=== PATIENT | male | born 1965 | race Caucasian/White ===

== ENCOUNTER → 2017-06-13 | Outpatient (CLI) | payer OTHER ==
[~2017-06-13] MED LIST: ASPIR-LOW81 MG; COLCRYS0.6 MG; LOPRESSOR25 MG PO; METOPROLOL; METOPROLOL25 MG PO; METOPROLOL50 MG; TRICOR48 MG PO; ZOCOR10 MG PO
[2017-06-13 09:28] LABS: HEMATOCRIT 43.2 % (42.0-52.0); HEMOGLOBIN 14.4 g/dl (14.0-18.0); MEAN CELL VOLUME 93.7 fl (80.0-94.0); MEAN CORPUSCULAR HGB 31.2 pg (27.0-31.0); MEAN CORPUSCULAR HGB CONC 33.3 g/dl (33.0-37.0); MEAN PLATELET VOLUME 10.2 fl (9.6-12.3); RED BLOOD COUNT 4.61 10*6/uL (4.50-5.90); RED CELL DISTRI WIDTH 12.8 % (0-14.5); WHITE BLOOD COUNT 6.8 10*3/uL (4.8-10.8)
[2017-06-13 09:50] LABS: ALBUMIN 3.8 gm/dl (3.1-4.5); BUN 21 mg/dl (7-24); CHLORIDE 106 mmol/L (98-107); CHOLESTEROL 126 mg/dL (<200); CREATININE 1.22 mg/dL (0.70-1.30); POTASSIUM 4.3 mmol/L (3.5-5.1); SGOT/AST 18 IU/L (3-35); SGPT/ALT 42 U/L (12-78); SODIUM 140 mmol/L (136-145); TOTAL PROTEIN 6.9 gm/dL (6.4-8.2); TRIGLYCERIDES 180 mg/dl (<150); URIC ACID 5.1 mg/dL (3.5-7.2); VLDL CHOLESTEROL 36 mg/dL (6-40)
[2017-06-13 09:51] LABS: ALKALINE PHOSPHATASE 61 U/L (45-117); CPK 94 U/L (39-308); HDL CHOLESTEROL 35 mg/dl (40-60); LDL CHOLESTEROL 55 mg/dL (9-159)
== END | disposition home or self-care (01) ==
LOC: LAB 08:41
PROVIDERS: Family Medicine
DX: E78.00 Pure hypercholesterolemia, unspecified (principal); I25.10 Atherosclerotic heart disease of native coronary artery without angina pectoris; I10 Essential (primary) hypertension

== ENCOUNTER → 2020-03-10 | Outpatient (CLI) | payer BC ==
[~2020-03-10] MED LIST changes: +ALLOPURINOL300 MG PO; +DECADRON6 M1 PO; +GUAIFEN-CODEIN118 ML PO; +LISINOPRIL20 MG PO; +MEDI-FIRST ASP325 MG PO
== END | disposition home or self-care (01) ==
LOC: COVID19 09:49
PROVIDERS: ATTEND Nurse Practitioner Family
DX: U07.1 COVID-19 (principal)

== ENCOUNTER 2020-03-12 16:35 | Inpatient (IN) | payer BC ==
[~2020-03-12] VITALS: Wt 113.4 kg
[~2020-03-12 16:35] MED LIST changes: -ALLOPURINOL300 MG PO; -DECADRON6 M1 PO; -GUAIFEN-CODEIN118 ML PO; -LISINOPRIL20 MG PO; -MEDI-FIRST ASP325 MG PO
[2020-03-12 16:46] VITALS: BP 127/74
[2020-03-12 18:21] LABS: HEMATOCRIT 41.7 % (42.0-52.0); LYMPH # 0.6 10*3/uL (1.3-4.4); LYMPH % 15.5 % (27.0-41.0); MEAN CELL VOLUME 94.6 fl (80.0-94.0); MEAN CORPUSCULAR HGB 31.1 pg (27.0-31.0); MEAN CORPUSCULAR HGB CONC 32.9 g/dl (33.0-37.0); MONO # 0.3 10*3/uL (0.1-1.0); MONO % 8.3 % (3.0-9.0); NEUT % 75.7 % (47.0-73.0); PLATELET COUNT AUTOMATED 152 10*3/uL (130-400); RED BLOOD COUNT 4.41 10*6/uL (4.50-5.90); RED CELL DISTRI WIDTH 13.2 % (0-14.5)
--- NOTE | 2020-03-12 19:06 | NUR ---
REPORT FROM CHAZ ELIZABETH. PATIENT RESTING IN BED. RR EASY AND NON-LABORED. CALL LIGHT WITHIN REACH. APPEARS TO BE IN NO DISTRESS AT THIS TIME. WILL CONTINUE TO MONITOR.
[2020-03-12 20:16] LABS: ALBUMIN 3.2 gm/dl (3.1-4.5); ALKALINE PHOSPHATASE 44 U/L (45-117); BUN 17 mg/dl (7-24); CHLORIDE 106 mmol/L (98-107); CREATININE 1.08 mg/dL (0.70-1.30); POTASSIUM 4.3 mmol/L (3.5-5.1); SGOT/AST 42 IU/L (3-35); SGPT/ALT 41 U/L (12-78); SODIUM 137 mmol/L (136-145); TOTAL PROTEIN 6.7 gm/dL (6.4-8.2)
[2020-03-12 20:23] VITALS: BP 116/65
--- NOTE | 2020-03-12 23:02 | NUR ---
PT. RESTING IN BED WITH EYES CLOSED. RR EASY AND NON-LABORED. CALL LIGHT WITHIN REACH. WILL CONTINUE TO MONITOR.
[2020-03-13] VITALS: BP 123/61
[2020-03-13 06:09] LABS: ALBUMIN 3.1 gm/dl (3.1-4.5); ALKALINE PHOSPHATASE 44 U/L (45-117); BUN 21 mg/dl (7-24); CHLORIDE 107 mmol/L (98-107); CHOLESTEROL 96 mg/dL (<200); CREATININE 1.06 mg/dL (0.70-1.30); LDH 331 U/L (87-241); POTASSIUM 4.6 mmol/L (3.5-5.1); SGOT/AST 47 IU/L (3-35); SGPT/ALT 43 U/L (12-78); SODIUM 139 mmol/L (136-145); TOTAL PROTEIN 6.8 gm/dL (6.4-8.2); TRIGLYCERIDES 140 mg/dl (<150); VLDL CHOLESTEROL 28 mg/dL (6-40)
[2020-03-13 06:10] LABS: CPK 183 U/L (39-308); HDL CHOLESTEROL 37 mg/dl (40-60); LDL CHOLESTEROL 31 mg/dL (9-159)
--- NOTE | 2020-03-13 06:10 | NUR ---
PT SLEEPING IN BED. RESP-EASY AND REGULAR. OXYGEN IN USE. CALL LIGHT IN REACH.
[2020-03-13] MEDS ORDERED: ALLOPURINOL300 MG PO (06:54)
[2020-03-13] MEDS ORDERED: LISINOPRIL20 MG PO (06:55)
--- NOTE | 2020-03-13 06:57 | NUR ---
CALLED DR. SWAIN MADE AWARE I SPOKE WITH AND VERIFIED HOME MEDICATIONS AND THEY NEED ORDERED.
[2020-03-13 07:23] LABS: HEMATOCRIT 42.2 % (42.0-52.0); LYMPH # 0.5 10*3/uL (1.3-4.4); LYMPH % 21.1 % (27.0-41.0); MEAN CELL VOLUME 96.6 fl (80.0-94.0); MEAN CORPUSCULAR HGB 30.9 pg (27.0-31.0); MONO # 0.1 10*3/uL (0.1-1.0); MONO % 4.4 % (3.0-9.0); NEUT # 1.9 10*3/uL (2.3-7.9); NEUT % 74.1 % (47.0-73.0); PLATELET COUNT AUTOMATED 165 10*3/uL (130-400); RED BLOOD COUNT 4.37 10*6/uL (4.50-5.90); WHITE BLOOD COUNT 2.5 10*3/uL (4.8-10.8)
[2020-03-13 07:44] LABS: FERRITIN 1518.7 ng/mL (22.0-322.0)
[2020-03-13 08:00] VITALS: BP 127/75
[2020-03-13 08:56] LABS: ABG BASE EXCESS 0.1 mmol/L (-2.0-2.0); ARTERIAL BLOOD GAS PH 7.427 (7.35-7.45)
--- NOTE | 2020-03-13 09:00 | NUR ---
Clinic Assistant in to talk to patient. Patient states lives at home with . There are no steps in the home. Physician: [facility] Pharmacy: [facility] Home health services: none Patient's level of ADLs: INDEPENDENT Patient has working utilities: all working DME: none Follow-up physician's appointment after d/c: will be made by hospitalist nurse director upon discharge Does patient want to access PORTAL?: no Discharge plan discussed with patient, he lives at home with , is independent in adls and ambulation, works, drives, he will return home when discharged, case management will follow for any home needs. PORSCHE THOMAS
--- NOTE | 2020-03-13 09:00 | NUR ---
PT ENCOURAGED TO PRONE
--- NOTE | 2020-03-13 10:57 | NUR ---
NOTIFIED OF PTS REQUEST FOR COUGH MEDICINE
[2020-03-13 12:00] VITALS: BP 111/55
[2020-03-13 16:00] VITALS: BP 120/70
[2020-03-13 20:00] VITALS: BP 123/62
[2020-03-14] VITALS: BP 105/45
[2020-03-14 06:16] LABS: BASO % 0.1 % (0.0-1.0); HEMATOCRIT 37.5 % (42.0-52.0); LYMPH # 1.2 10*3/uL (1.3-4.4); MEAN CELL VOLUME 95.7 fl (80.0-94.0); MEAN CORPUSCULAR HGB 31.4 pg (27.0-31.0); MEAN CORPUSCULAR HGB CONC 32.8 g/dl (33.0-37.0); MEAN PLATELET VOLUME 10.2 fl (9.6-12.3); MONO # 0.7 10*3/uL (0.1-1.0); MONO % 7.9 % (3.0-9.0); NEUT # 7.2 10*3/uL (2.3-7.9); NEUT % 78.7 % (47.0-73.0); PLATELET COUNT AUTOMATED 185 10*3/uL (130-400); RED BLOOD COUNT 3.92 10*6/uL (4.50-5.90); WHITE BLOOD COUNT 9.2 10*3/uL (4.8-10.8)
[2020-03-14 06:20] LABS: ALBUMIN 2.9 gm/dl (3.1-4.5); ALKALINE PHOSPHATASE 39 U/L (45-117); BUN 25 mg/dl (7-24); CHLORIDE 107 mmol/L (98-107); CPK 139 U/L (39-308); CREATININE 1.09 mg/dL (0.70-1.30); LDH 309 U/L (87-241); POTASSIUM 4.9 mmol/L (3.5-5.1); SGOT/AST 49 IU/L (3-35); SGPT/ALT 52 U/L (12-78); SODIUM 140 mmol/L (136-145); TOTAL PROTEIN 6.3 gm/dL (6.4-8.2)
[2020-03-14 07:55] LABS: ABG BASE EXCESS -0.2 mmol/L (-2.0-2.0); ARTERIAL BLOOD GAS PH 7.444 (7.35-7.45)
[2020-03-14 08:00] VITALS: BP 109/47
--- NOTE | 2020-03-14 08:17 | NUR ---
PT GIVEN PO ROBITUSSIN PER PRN ORDER FOR C/O COUGH. WILL MONITOR EFFECTIVENESS. POX 93% VIA 2LNC. WILL MONITOR. CALL LIGHT WITHIN REACH.
--- NOTE | 2020-03-14 10:07 | NUR ---
PT ASSESSED FOR HOME OXYGEN. PT QUALIFIES PT AT REST 94% RA, HR 77, RR 18, B/P 121/76 PT AMBULATED SPO2 90-93% RA PT AT REST SPO2 88-89% RA, HR 76, RR 18, B/P 120/64, PLACED ON 2LNC SPO2 94% RN NOTIFIED AND CASEMANAGEMENT NOTIFIED, NOTIFIED
--- NOTE | 2020-03-14 11:30 | NUR ---
case management received a script for home oxygen for patient, contacted [facility], spoke to Chaparrita, patient's information along with script for o2 faxed. elan stated they would bring a portable tank to the hospital for patient today. contacted nursing staff and informed them, also contacted patient and informed him
[2020-03-14 12:00] VITALS: BP 125/70
--- NOTE | 2020-03-14 15:00 | NUR ---
Patient resting quietly with no c/o discomfort. Respirations easy and regular. Vital signs stable. No overt distress. JOSE ALFREDO BEVERLY
[2020-03-14 16:00] VITALS: BP 119/77
[2020-03-14 20:00] VITALS: BP 127/62
[2020-03-15] VITALS: BP 113/66
[2020-03-15 06:31] LABS: BASO % 0.1 % (0.0-1.0); HEMATOCRIT 41.5 % (42.0-52.0); LYMPH # 1.7 10*3/uL (1.3-4.4); LYMPH % 18.6 % (27.0-41.0); MEAN CELL VOLUME 97.2 fl (80.0-94.0); MEAN CORPUSCULAR HGB 31.4 pg (27.0-31.0); MEAN CORPUSCULAR HGB CONC 32.3 g/dl (33.0-37.0); MONO # 0.8 10*3/uL (0.1-1.0); MONO % 8.6 % (3.0-9.0); NEUT # 6.4 10*3/uL (2.3-7.9); PLATELET COUNT AUTOMATED 215 10*3/uL (130-400); RED BLOOD COUNT 4.27 10*6/uL (4.50-5.90); RED CELL DISTRI WIDTH 13.2 % (0-14.5); WHITE BLOOD COUNT 8.9 10*3/uL (4.8-10.8)
[2020-03-15 06:46] LABS: ALBUMIN 3.2 gm/dl (3.1-4.5); ALKALINE PHOSPHATASE 43 U/L (45-117); BUN 27 mg/dl (7-24); CHLORIDE 107 mmol/L (98-107); CPK 105 U/L (39-308); CREATININE 1.14 mg/dL (0.70-1.30); LDH 361 U/L (87-241); POTASSIUM 4.2 mmol/L (3.5-5.1); SGOT/AST 69 IU/L (3-35); SGPT/ALT 86 U/L (12-78); SODIUM 140 mmol/L (136-145); TOTAL PROTEIN 6.8 gm/dL (6.4-8.2)
[2020-03-15 08:00] VITALS: BP 121/57
--- NOTE | 2020-03-15 09:32 | NUR ---
TYLENOL AND ROBITUSSIN GIVEN PER PRN ORDER FOR C/O GENERALIZED PAIN/DISCOMFORT AND HARSH COUGH. WILL MONITOR EFFECTIVENESS. POX 93% VIA 2LNC. CALL LIGHT WITHIN REACH.
--- NOTE | 2020-03-15 10:32 | NUR ---
EARLIER MEDS EFFECTIVE PER PT. WILL CONTINUE TO MONITOR.
[2020-03-15 12:00] VITALS: BP 100/47
[2020-03-15] MEDS ORDERED: MEDI-FIRST ASP325 MG PO (12:04)
[2020-03-15] MEDS ORDERED: DECADRON6 M1 PO (12:04)
--- NOTE | 2020-03-15 13:29 | NUR ---
Discharge instructions reviewed with patient/family. Patient receptive and verbalizes understanding. Follow-up care arranged. Written instructions given to patient/family. JOSE ALFREDO BEVERLY.
[2020-03-15] MEDS ORDERED: GUAIFEN-CODEIN118 ML PO (13:33)
== END 2020-03-15 13:29 | disposition home or self-care (01) | DRG 177 ==
LOC: ED 16:35 → EDHOLD 20:29 → 4E 20:29 → EDHOLD 20:38 → 4E 22:50
PROVIDERS: Internal Medicine; Internal Medicine Critical Care Medicine; Nurse Practitioner; ADMIT Internal Medicine; ATTEND Internal Medicine
DX: U07.1 COVID-19 (principal); J96.01 Acute respiratory failure with hypoxia; J12.89 Other viral pneumonia; N17.9 Acute kidney failure, unspecified; Z68.1 Body mass index [BMI] 19.9 or less, adult; R91.8 Other nonspecific abnormal finding of lung field; D53.9 Nutritional anemia, unspecified; R73.9 Hyperglycemia, unspecified; E83.41 Hypermagnesemia; I25.10 Atherosclerotic heart disease of native coronary artery without angina pectoris; I10 Essential (primary) hypertension; M10.9 Gout, unspecified; D72.810 Lymphocytopenia; R74.02 Elevation of levels of lactic acid dehydrogenase [LDH]; E78.1 Pure hyperglyceridemia; E66.9 Obesity, unspecified; Z95.1 Presence of aortocoronary bypass graft; I25.2 Old myocardial infarction; Z82.49 Family history of ischemic heart disease and other diseases of the circulatory system

== ENCOUNTER → 2020-03-24 | Outpatient (CLI) | payer BC ==
[~2020-03-24] MED LIST changes: +ALLOPURINOL300 MG PO; +DECADRON6 M1 PO; +GUAIFEN-CODEIN118 ML PO; +LISINOPRIL20 MG PO; +MEDI-FIRST ASP325 MG PO
== END | disposition home or self-care (01) ==
LOC: RAD 09:40
PROVIDERS: ATTEND Family Medicine
DX: U07.1 COVID-19 (principal); J12.89 Other viral pneumonia

== ENCOUNTER → 2020-04-14 | Outpatient (CLI) | payer BC ==
[2020-04-14 11:00] LABS: HEMATOCRIT 45.3 % (42.0-52.0); MEAN CELL VOLUME 95.2 fl (80.0-94.0); MEAN CORPUSCULAR HGB 30.9 pg (27.0-31.0); MEAN CORPUSCULAR HGB CONC 32.5 g/dl (33.0-37.0); MEAN PLATELET VOLUME 9.5 fl (9.6-12.3); RED BLOOD COUNT 4.76 10*6/uL (4.50-5.90); RED CELL DISTRI WIDTH 13.6 % (0-14.5); WHITE BLOOD COUNT 7.5 10*3/uL (4.8-10.8)
[2020-04-14 11:31] LABS: ALBUMIN 3.4 gm/dl (3.1-4.5); ALKALINE PHOSPHATASE 62 U/L (45-117); BUN 21 mg/dl (7-24); CHLORIDE 106 mmol/L (98-107); CHOLESTEROL 206 mg/dL (<200); CPK 43 U/L (39-308); CREATININE 1.13 mg/dL (0.70-1.30); HDL CHOLESTEROL 46 mg/dl (40-60); LDL CHOLESTEROL 108 mg/dL (9-159); POTASSIUM 4.5 mmol/L (3.5-5.1); SGOT/AST 28 IU/L (3-35); SGPT/ALT 104 U/L (12-78); SODIUM 137 mmol/L (136-145); TOTAL PROTEIN 7.1 gm/dL (6.4-8.2); TRIGLYCERIDES 259 mg/dl (<150); VLDL CHOLESTEROL 52 mg/dL (6-40)
== END | disposition home or self-care (01) ==
LOC: LAB 10:42
PROVIDERS: ATTEND Family Medicine
DX: U07.1 COVID-19 (principal); E78.00 Pure hypercholesterolemia, unspecified; J18.0 Bronchopneumonia, unspecified organism; J98.4 Other disorders of lung

== ENCOUNTER → 2020-07-28 | Outpatient (CLI) | payer BC ==
[2020-07-28 10:22] LABS: HEMATOCRIT 45.3 % (42.0-52.0); MEAN CELL VOLUME 93.4 fl (80.0-94.0); MEAN CORPUSCULAR HGB 30.9 pg (27.0-31.0); MEAN CORPUSCULAR HGB CONC 33.1 g/dl (33.0-37.0); MEAN PLATELET VOLUME 9.8 fl (9.6-12.3); RED BLOOD COUNT 4.85 10*6/uL (4.50-5.90)
[2020-07-28 10:53] LABS: ALBUMIN 3.8 gm/dl (3.1-4.5); ALKALINE PHOSPHATASE 54 U/L (45-117); BUN 17 mg/dl (7-24); CHLORIDE 109 mmol/L (98-107); CHOLESTEROL 142 mg/dL (<200); CREATININE 1.25 mg/dL (0.70-1.30); HDL CHOLESTEROL 41 mg/dl (40-60); LDL CHOLESTEROL 64 mg/dL (9-159); POTASSIUM 4.9 mmol/L (3.5-5.1); SGOT/AST 25 IU/L (3-35); SGPT/ALT 65 U/L (12-78); SODIUM 139 mmol/L (136-145); TOTAL PROTEIN 6.9 gm/dL (6.4-8.2); TRIGLYCERIDES 186 mg/dl (<150); VLDL CHOLESTEROL 37 mg/dL (6-40)
== END | disposition home or self-care (01) ==
LOC: LAB 09:33
PROVIDERS: ATTEND Family Medicine
DX: I25.810 Atherosclerosis of coronary artery bypass graft(s) without angina pectoris (principal); I10 Essential (primary) hypertension; E78.5 Hyperlipidemia, unspecified